=== PATIENT | male | born 1985 | race Caucasian/White ===

== ENCOUNTER 2022-08-08 10:13 | Day surgery (SDC) | payer BC ==
[2022-08-07 09:33] VITALS: BMI 35.1
[2022-08-08] MEDS ORDERED: PROPOFOL 40 ML ONE (10:43)
[2022-08-08] MEDS ORDERED: Lidocaine 2% MPF 10 ML AMP (For Epidural Use) ONE (11:26)
== END 2022-08-08 12:53 | disposition home or self-care (01) ==
LOC: CSHSDC 10:13
PROVIDERS: ATTEND Internal Medicine Gastroenterology
PROC: 0DBL8ZZ Excision of Transverse Colon, Via Natural or Artificial Opening Endoscopic (ICD-10-PCS; principal; 2022-08-08)
DX: D12.3 Benign neoplasm of transverse colon (principal); K62.5 Hemorrhage of anus and rectum; K64.9 Unspecified hemorrhoids; I10 Essential (primary) hypertension; F41.9 Anxiety disorder, unspecified; F90.9 Attention-deficit hyperactivity disorder, unspecified type; Z79.899 Other long term (current) drug therapy
CPT/HCPCS: 88305; J2704